=== PATIENT | male | born 1980 ===

== ENCOUNTER 2017-02-01 03:10 | Inpatient (IN) | payer BC, MEDICAID ==
[2017-02-01 04:38] LABS: BASO # 0.1 K/uL (0.0-0.2); BASO % 1.2 % (0.0-2.0); EOS # 0.3 K/uL (0.0-0.7); HEMATOCRIT 37.8 % (35.0-51.0); LYMPH # 1.8 K/uL (1.0-4.3); LYMPH % 30.7 % (20.0-40.0); MEAN CELL VOLUME 87.8 fL (80.0-94.0); MEAN CORPUSCULAR HEMOGLOBIN 30.9 pg (27.0-31.0); MEAN CORPUSCULAR HGB CONC 35.2 g/dL (33.0-37.0); MONO # 0.6 K/uL (0.0-0.8); MONO % 10.2 % (0.0-10.0); RED CELL DISTRIBUTION WIDTH 13.3 % (11.5-14.5)
[2017-02-01 04:42] LABS: RBC URINE 137 /hpf (0-3); URINE BILIRUBIN NEGATIVE (NEGATIVE); URINE BLOOD 3+ (NEGATIVE); URINE COLOR Yellow (YELLOW); URINE GLUCOSE (UA) NORMAL (Normal); URINE KETONE NEGATIVE (NEGATIVE); URINE LEUKOCYTE ESTERASE NEG Leu/uL (Negative); URINE PROTEIN NEGATIVE (NEGATIVE); URINE UROBILINOGEN NORMAL mg/dL (0.2-1.0); WBC URINE 1 /hpf (0-5)
[2017-02-01 04:46] LABS: CHLORIDE 102 mmol/L (98-107); POTASSIUM 3.7 mmol/L (3.6-5.2); SODIUM 133 mmol/L (132-148)
[2017-02-01 04:48] LABS: ALB/GLOB RATIO 0.9 (1.0-2.1); AST/SGOT 56 U/L (17-59); BILIRUBIN,TOTAL 0.4 mg/dL (0.2-1.3); CARBON DIOXIDE 21 mmol/L (22-30); GFR AFRICAN-AMERICAN > 60; TOTAL PROTEIN 8.2 g/dL (6.3-8.3)
[2017-02-01 04:49] LABS: ALCOHOL SERUM < 10 mg/dl (0-10); ALKALINE PHOSPHATASE 78 U/L (38-126); ALT/SGPT 88 U/L (21-72); BLOOD UREA NITROGEN 10 mg/dL (9-20); CALCIUM 8.7 mg/dl (8.6-10.4); GLUCOSE,RANDOM 79 mg/dL (75-110)
--- NOTE | 2017-02-01 04:49 | C.PDOC ---
History Of Present Illness 36 year old male who presents to the ER stating he feels like he is going to fall into a depression soon and wants to prevent it. Patient states he is noncompliant with his antidepression medications; denies suicidal ideation or physical complaints. Time Seen by Provider: 02/01/17 03:51 Chief Complaint (Nursing): Psychiatric Evaluation History Per: Patient History/Exam Limitations: no limitations Onset/Duration Of Symptoms: Days Current Symptoms Are (Timing): Still Present Suicide/Self Injury Attempted (Context): None Modifying Factor(s): None Associated Symptoms: Depression. denies: Suicidal Thoughts, Suicidal Plan Involuntary Hold By: None Recent travel outside of the [place]: No Past Medical History Reviewed: Historical Data, Nursing Documentation, Vital Signs Vital Signs: Last Vital Signs Temp 97.5 F L 02/01/17 06:49 Pulse 66 02/01/17 06:49 Resp 16 02/01/17 06:49 BP 121/80 02/01/17 06:49 Pulse Ox 98 02/01/17 06:49 - Medical History PMH: No Chronic Diseases Surgical History: No Surg Hx Family History: States: Unknown Family Hx - Social History Hx Alcohol Use: No Hx Substance Use: No Review Of Systems Constitutional: Negative for: Fever, Chills Gastrointestinal: Negative for: Nausea, Vomiting Psych: Positive for: Depression. Negative for: Suicidal ideation Physical Exam - Physical Exam Appears: Non-toxic, No Acute Distress Skin: Normal Color, Warm, Dry Head: Atraumatic, Normacephalic Eye(s): bilateral: Normal Inspection, EOMI Oral Mucosa: Moist Chest: Symmetrical Cardiovascular: Rhythm Regular Respiratory: Normal Breath Sounds, No Accessory Muscle Use Neurological/Psych: Oriented x3, Normal Speech, Normal Cognition ED Course And Treatment - Laboratory Results Result Diagrams: 02/01/17 04:35 02/01/17 04:35 O2 Sat by Pulse Oximetry: 99 (Room air) Pulse Ox Interpretation: Normal Progress Note: 0540: Blood work and urinalysis ordered. Crisis notified. Pt is medically cleared for Crisis evaluation Disposition - Disposition Disposition: HOME/ ROUTINE Disposition Time: 06:59 Condition: STABLE Forms: [facility] (Czech) - Clinical Impression Clinical Impression: Moderate major depression, single episode - Scribe Statement The provider has reviewed the documentation as recorded by the Scribswetha Lester All medical record entries made by the Scribe were at my direction and personally dictated by me. I have reviewed the chart and agree that the record accurately reflects my personal performance of the history, physical exam, medical decision making, and the department course for this patient. I have also personally directed, reviewed, and agree with the discharge instructions and disposition. Physician Patient Turnover Patient Signed Over To: Daxa Brooks Handoff Comments: Pending crisis evaluation for admission
--- NOTE | 2017-02-01 08:58 | PCM.BM ---
<Suzie Barboza - Last Filed: 02/01/17 08:55> Treatment Plan Problems - Problems identified on initial assessmt Depression Date Initiated: 02/01/17 Time Initiated: 08:56 Assessment reference: NA Status: Active Suicidal Ideation Date Initiated: 02/01/17 Time Initiated: 08:57 Assessment reference: NA Status: Active Treatment assets and liabiliti Patient Assests: adapts well, cooperative, ADL independent, physically healthy, negotiates basic needs, cognitively intact Patient Liabilities: live alone - Milieu Protocol Maintain good personal hygiene: daily Encourage regular showers, daily Remind patient to perform daily oral care, other Assist patient to perform ADL's (Self) Conduct patient checks and document Observation sheet: Q15 minutes (Safety) Maintain personal safety: every shift Educate patient to report safety concerns to staff, every shift Monitor environment for contraband/sharps Medication safety: Monitor for expected outcome, potential side effects: every shift, Assess barriers to learning: every shift, Assess readiness for medication education: every shift <Issa Belcher - Last Filed: 02/02/17 13:48> - Diagnosis (1) Major depressive disorder, recurrent, moderate Status: Acute Interventions: Assess/adjust medications daily and/or as needed SEE patient on him individual basis 7x/week to assess status of hallucinations. Discuss risks, benefits, side effects and alternatives of medications. 02/02/17 13:48 <Joi Joshua - Last Filed: 02/03/17 13:54> Family Contact Family involvement: Famliy/SO not involved (Pt signed out AMA) Discharge/Continuing Care - Education Needs Education Needs: Patient Medication, Patient Coping Skills - Discharge Discharge Criteria: Tolerates medication w/o severe side effects, Free of Suicidal thoughts Discharge to:: Home - Treatment Team Participation Discussed with Family/SO: No Was Patient/Family/SO present at Treatment Team Meeting: No
--- NOTE | 2017-02-01 13:43 | PCM.PSYCH ---
Initial Psychiatric Evaluation - Initial Psychiatric Evaluation Chief Complaint (in patient's own words): Patient refused to speak, refused to come out of his room. We will attempt to evaluate him again tomorrow. Current Medications: Active Medications Generic Name Dose Route Start Last Admin Trade Name Freq PRN Reason Stop Dose Admin Pneumococcal Polyvalent Vaccine 0.5 ml 02/03/17 10:00 Pneumovax 23 Vaccine IM 02/03/17 10:01 .ONCE ONE Past Psychiatric History - Past Psychiatric History Pertinent Medical Hx (Current Medical&Sleep Prob, Allergies): Allergies Allergy/AdvReac Type Severity Reaction Status Date / Time No Known Allergies Allergy Verified 02/01/17 03:16
[2017-02-02] MEDS ORDERED: Midazolam 2 MG/2 ML VIAL ONE (13:28)
--- NOTE | 2017-02-02 13:57 | PCM.PSYCH ---
Initial Psychiatric Evaluation - Initial Psychiatric Evaluation Type of Admission: Voluntary Legal Status: Capacity Chief Complaint (in patient's own words): I was depressed and suicidal. History of Present Illness and Precipitating Events: Patient is a 36 years old single, unemployed, was working as a waiter/waitress tavern, male with history of depression for last 3 years, noncompliant with treatment was admitted yesterday due to worsening of depressive symptoms and suicidal ideations. Yesterday patient refuses to speak. Today patient came out of his office for evaluation but still he was guarded and angry. Patient refused to discuss the reason of his depression that led suicidal ideations and admission. This reported he was depressed yesterday and is better now. Reported increased appetite and increased sleep. Patient denied any current suicidal ideation. Denied any suicidal attempts or homicidal ideations in the past. Denied any psychotic manic or anxiety symptoms. History of 3 inpatient psychiatric admission in the past. His last admission was at [facility] in March 2016. Patient was in group home for 3 years, from 2011 2014 for charges of credit card and computer fraud. During evaluation patient was guarded, angry, no eye contact. Later patient signed 48 hour notice for discharge ending on Monday. Denied any current substance use but reported he was using amphetamine until 1 year ago. Guarded about further details. Smokes half pack of cigarettes daily. Refused to get nicotine patch. Current Medications: Active Medications Generic Name Dose Route Start Last Admin Trade Name Freq PRN Reason Stop Dose Admin Benztropine Mesylate 2 mg 02/01/17 19:21 Cogentin PO Q6 PRN Extra Pyramidal Symptoms Haloperidol 5 mg 02/01/17 19:21 Haldol PO Q8 PRN Moderate Agitation Haloperidol Lactate 5 mg 02/01/17 19:21 Haldol IM Q8 PRN Moderate Agitation Hydroxyzine HCl 25 mg 02/01/17 19:21 Atarax PO Q6 PRN Anxiety Lorazepam 2 mg 02/01/17 19:21 Ativan PO Q8H PRN Severe Agitation Lorazepam 2 mg 02/01/17 19:24 Ativan IM Q8H PRN severe anxiety & agitation Pneumococcal Polyvalent Vaccine 0.5 ml 02/03/17 10:00 Pneumovax 23 Vaccine IM 02/03/17 10:01 .ONCE ONE Trazodone HCl 50 mg 02/01/17 22:00 Desyrel PO HS PRN Insomnia Past Psychiatric History - Past Psychiatric History Previous Treatment History: Inpatient History of Abuse: None reported History of ETOH/Drug Use: See HPI History of Family Illness: None reported Pertinent Medical Hx (Current Medical&Sleep Prob, Allergies): Allergies Allergy/AdvReac Type Severity Reaction Status Date / Time No Known Allergies Allergy Verified 02/01/17 03:16 HIV Review of Systems - Psychiatric Psychiatric: Depression, Irritability Mental Status Examination - Personal Presentation Personal Presentation: Looks stated age - Affect Affect: Depressed - Motor Activity Motor Activity: Calm - Reliability in Providing Information Reliability in Providing Information: Fair - Speech Speech: Relevant - Mood Mood: Depressed - Formal Thought Process Formal Thought Process: No Impairment - Hallucinations/Delusions Hallucinations: Other (None reported) Delusions: Other - Obsessions/Compulsions Obsessions: None Compulsions: None - Cognitive Functions Orientation: Person, Place, Situation, Time Sensorium: Alert Attention/Concentration: Attentive Abstract Thinking: [place]irre Estimate of Intelligence: Average Judgement: Imparied, as evidence by: Lack of insight into illness Memory: Recent intact, as evidence by: Other, Remote intact, as evidenced by: Ability to recall historical events - Risk Risk: Diminished functioning - Strength & Assets Inventory Strength & Assets Inventory: Cooperative - Limitations Limitations: Living alone DSM 5 DX - DSM 5 DSM 5 Diagnosis: Major depressive disorder recurrent moderate Provisional: Bipolar disorder Provisional: Impulse control disorder - Recommended/Plan of Treatment Treatment Recommendations and Plan of Treatment: Patient education Supportive therapy We'll start sertraline 50 mg daily Other when necessary medications Projected ELOS: 8-10 days - Smoking Cessation Smoking Cessation Initiated: No Reason for not providing: Patient refuses to take nicotine patch
[2017-02-03 07:57] VITALS: BP 127/83; PULSE 79; RESP 20; TEMP 97.6; O2SAT 97
[2017-02-03] MEDS ORDERED: Influenza Vaccine 60 mcg/0.5 mL SYR (4YR UP) IM ONE (10:00)
[2017-02-03] MEDS ORDERED: Pneumococcal 23-Valent Vaccine IM ONE (10:00)
--- NOTE | 2017-02-03 23:47 | PCM.PYCHDC ---
Mental Status Examination - Mental Status Examination Orientation: Person, Place, Situation, Time Memory: Intact Mood: Neutral Affect: Other (approprit) Speech: Appropriate Attention: WNL Concentration: WNL Association: WNL Fund of Knowledge: WNL Formal Thought Process: No Impairment Description of patient's judgement and insight: poor Psychotic Thoughts and Behaviors: none Suicidal Ideation: No Current Homicidal Ideation?: No Discharge Summary - Discharge Note Reason for Hospitalization: Depression Laboratory Data: Reviewed Consultations:: List each consultation separately and include: 1. Reason for request. 2. Findings. 3. Follow-up Summary of Hospital Course include:: 1. Description of specific treatment plan utilized for patients during their course of treatmen. 2. Summarize the time- course for resolution of acute symptoms and/or regressed behaviors. 3. Describe issues identified and worked on during hospitalization. 4. Describe medication utilized. 5. Describe medical problems identified and treated. 6. Reassessment of suicide risk Summary of Hospital Course: Patient is a 36 years old single, unemployed, was working as a staff anesthesiologist, male with history of depression for last 3 years, noncompliant with treatment was admitted yesterday due to worsening of depressive symptoms and suicidal ideations. Yesterday patient refuses to speak. Today patient came out of his office for evaluation but still he was guarded and angry. Patient refused to discuss the reason of his depression that led suicidal ideations and admission. This reported he was depressed yesterday and is better now. Reported increased appetite and increased sleep. Patient denied any current suicidal ideation. Denied any suicidal attempts or homicidal ideations in the past. Denied any psychotic manic or anxiety symptoms. History of 3 inpatient psychiatric admission in the past. His last admission was at [facility] in March 2016. Patient was in long-term for 3 years, from 2011 2014 for charges of credit card and computer fraud. During evaluation patient was guarded, angry, no eye contact. Later patient signed 48 hour notice for discharge ending on Monday. Denied any current substance use but reported he was using amphetamine until 1 year ago. Guarded about further details. Smokes half pack of cigarettes daily. Refused to get nicotine patch. During his stay in the hospital he was treated with Zoloft, Trazodone, and other PRN medications. patient signed a 48 hour notice for discharge yesterday. Today patient decided to leave. Education provided to the patient about treatment. Patient refused to stay. Patient was educated that in case of any adverse event including worsening of depression, suicidal ideations or attempt, decompensation or even , patient will be responsible for his actions. Patient agreed with above but still refused to stay. Patient left the unit against medical advice. At the time of evaluation and discharge, patient was AAOx3, had no delusions, no A/V hallucinations, no SI/HI. Patient was discharged in a stable condition. - Diagnosis (1) Major depressive disorder, recurrent, moderate Status: Acute - Final Diagnosis (DSM 5) Condition upon Discharge: STABLE Disposition: AGAINST MEDICAL ADVICE Prescriptions/Medication Reconciliation: Benztropine [Cogentin] 2 mg PO HS PRN #30 tab PRN Reason: Extra Pyramidal Symptoms Sertraline [Zoloft] 50 mg PO DAILY #30 tab traZODone [Desyrel] 50 mg PO HS PRN #30 tab PRN Reason: Insomnia - Smoking Cessation Smoking Cessation Medication prescribed: No - Antipsychotic Medications Pt discharged on 2 or more routine antipsychotic medications: No
== END 2017-02-03 11:24 | disposition left against medical advice (07) | DRG 430 ==
LOC: C.ER 03:10 → C.5E 08:08
DX: F33.1 Major depressive disorder, recurrent, moderate (principal); R45.851 Suicidal ideations; Z91.19 Patient's noncompliance with other medical treatment and regimen; F17.210 Nicotine dependence, cigarettes, uncomplicated; F63.9 Impulse disorder, unspecified